=== PATIENT | male | born 1970 | race Native Hawaiian/Other Pacific Islander ===

== ENCOUNTER 2016-12-20 07:50 | Day surgery (SDC) | payer BC ==
[2016-12-20 08:50] LABS: PLATELET COUNT 304 K/uL (142-355)
[2016-12-20 09:04] LABS: POTASSIUM 3.6 mmol/L (3.6-5.2)
== END 2016-12-20 11:05 | disposition home or self-care (01) ==
LOC: OR 07:50
PROVIDERS: Student in an Organized Health Care Education/Training Program
PROC: 0DBP8ZZ Excision of Rectum, Via Natural or Artificial Opening Endoscopic (ICD-10-PCS; principal; 2016-12-20)
DX: K62.1 Rectal polyp (principal); R19.4 Change in bowel habit; K59.00 Constipation, unspecified; R10.9 Unspecified abdominal pain; R19.7 Diarrhea, unspecified; Z12.11 Encounter for screening for malignant neoplasm of colon
CPT/HCPCS: 80053; 85027; J2001; J2250; J2405; J2704; J3010